=== PATIENT | female | born 1965 | race Caucasian/White ===

== ENCOUNTER 2025-08-23 13:14 | Outpatient (CLI) | payer MEDICARE, SELFPAY ==
--- NOTE | 2025-08-23 14:20 | MM_ITS ---
WS: [id number] VIEWS: MLO and CC views both breasts. 3D digital tomosynthesis is also included in this exam. Comparison made with prior exam of 05/29/2017, 06/08/2018, 02/21/2021, 04/12/2022, 05/27/2023, 06/17/2024.. Findings: There are scattered areas of fibroglandular density. No sign of suspicious mass, tumor calcification or architectural distortion. MM/MM scr BI tomosynthesis [id number] Impression: BI-RADS: 2 - Benign. FOLLOW-UP: 1 Year Follow-up This mammogram was also analyzed by the Computer Aided Detection System R2 Imag e Automatic Bandsaw Tender.
== END 2025-08-23 13:15 | disposition home or self-care (01) ==
LOC: MOBLMAM 13:19
PROVIDERS: PCP Nurse Practitioner Family; Visit Provider Nurse Practitioner Family
DX: Z12.31 Encounter for screening mammogram for malignant neoplasm of breast (principal); R92.323 Mammographic fibroglandular density, bilateral breasts
CPT/HCPCS: 77063; 77067